=== PATIENT | male | born 1995 | race African-American/Black ===

== ENCOUNTER 2017-07-02 13:21 | Emergency (ER) | payer SELFPAY ==
[~2017-07-02] VITALS: Ht 101.6 cm; Wt 89.0 kg
[2017-07-02] MEDS ORDERED: ZOFRAN4 MG/TAB PO (13:39)
[2017-07-02] MEDS ORDERED: BENTYL10 MG PO (13:39)
[2017-07-02 13:50] VITALS: BP 135/88
== END 2017-07-02 13:55 | disposition home or self-care (01) | DRG 392 ==
LOC: ED 13:21
DX: K52.9 Noninfective gastroenteritis and colitis, unspecified (principal); R11.2 Nausea with vomiting, unspecified

== ENCOUNTER 2022-07-03 17:25 | Emergency (ER) | payer OTHER ==
[~2022-07-03] VITALS: Ht 172.7 cm; Wt 86.2 kg
[~2022-07-03 17:25] MED LIST: BENTYL10 MG PO; ZOFRAN4 MG/TAB PO
[2022-07-03 17:45] VITALS: BP 132/88
[2022-07-03 18:00] VITALS: BP 130/87
[2022-07-03 19:00] VITALS: BP 139/94
[2022-07-03] MEDS ORDERED: PROAIR HFA IN (19:37)
[2022-07-03] MEDS ORDERED: ZYRTEC10 MG PO (19:37)
[2022-07-03] MEDS ORDERED: MEDDOSEPAK PO (19:37)
[2022-07-03 20:00] VITALS: BP 135/81
[2022-07-03 20:26] VITALS: BP 135/81
== END 2022-07-03 20:36 | disposition home or self-care (01) | DRG 203 ==
LOC: ED 17:25
DX: J45.901 Unspecified asthma with (acute) exacerbation (principal); R06.02 Shortness of breath